=== PATIENT | male | born 1980 | race Caucasian/White ===

== ENCOUNTER 2017-08-21 16:49 | Inpatient (IN) | payer MEDICAID ==
[2017-08-21] MEDS: ONDANSETRON 4 MG INJ IV (19:06)
[2017-08-21] MEDS: morphine 4 MG/ML VIAL IV ×2 (19:06→20:27)
[2017-08-21] MEDS: SOD CHLORIDE 0.9% 1,000 ML IV ×2 (19:07→20:26)
[2017-08-21 19:51] LABS: ADD MAN DIFF? NO
[2017-08-21 19:57] LABS: WHITE BLOOD COUNT 20.6 10^3/ul (4.8-10.8)
[2017-08-21 19:57] LABS: BASOPHIL # 0.1 10^3/ul (0.0-0.1); BASOPHILS % 0.2 % (0.0-2.0); EOSINOPHILS % 0.1 % (0.0-7.0); HEMATOCRIT 48.4 % (42.0-52.0); HEMOGLOBIN 16.7 g/dl (14.0-18.0); LYMPHOCYTES # 2.1 10^3/ul (0.8-2.9); MEAN CORPUSCULAR HEMOGLOBIN 28.9 pg (29.0-33.0); MEAN CORPUSCULAR HGB CONC 34.5 g/dl (32.0-37.0); MEAN CORPUSCULAR VOLUME 83.9 fl (82.0-101.0); MEAN PLATELET VOLUME 11.2 fl (7.4-10.4); MONOCYTE # 1.3 10^3/ul (0.3-0.9); MONOCYTES % 6.1 % (0.0-11.0); NEUTROPHIL # 17.1 10^3/ul (1.6-7.5); NEUTROPHILS % 83.2 % (39.0-77.0); PLATELET COUNT 303 10^3/UL (140-415); RED BLOOD COUNT 5.77 10^6/ul (4.70-6.10); RED CELL DISTRIBUTION WIDTH 12.2 % (11.5-14.5)
[2017-08-21 20:06] LABS: ADD UMIC YES; UR AMORPHOUS CRYSTAL FEW /HPF (NONE SEEN); UR ASCORBIC ACID NEGATIVE (NEGATIVE); UR BILIRUBIN (Dip) NEGATIVE (NEGATIVE); UR BLOOD (Dip) NEGATIVE (NEGATIVE); UR CLARITY CLOUDY (CLEAR); UR COLOR YELLOW (YELLOW); UR GLUCOSE (Dip) NEGATIVE (NEGATIVE); UR KETONES (Dip) NEGATIVE (NEGATIVE); UR LEUKOCYTE ESTERASE (Dip) NEGATIVE Leu/ul (NEGATIVE); UR NITRITE (Dip) NEGATIVE (NEGATIVE); UR RBC 1 /HPF (0-5); UR SPECIFIC GRAVITY (Dip) 1.027 (1.003-1.030); UR TOTAL PROTEIN (Dip) 1+ mg/dl (NEGATIVE); UR UROBILINOGEN (Dip) NEGATIVE (NEGATIVE); UR WBC 5 /HPF (0-5)
[2017-08-21 20:09] LABS: INR 0.96; PARTIAL THROMBOPLASTIN TIME 26.6 Sec (25.0-35.0); PROTIME 12.9 Sec (11.9-14.9)
[2017-08-21 20:11] LABS: ALANINE AMINOTRANSFERASE 53 IU/L (13-69); ALBUMIN/GLOBULIN RATIO 1.51; ALKALINE PHOSPHATASE 107 IU/L (42-121); ANION GAP 16 (8-16); ASPARTATE AMINO TRANSFERASE 29 IU/L (15-46); BILIRUBIN,INDIRECT 0.4 mg/dl (0-1.1); BILIRUBIN,TOTAL 0.4 mg/dl (0.2-1.3); BLOOD UREA NITROGEN 13 mg/dl (7-20); CALCIUM 9.4 mg/dl (8.4-10.2); CARBON DIOXIDE 29 mmol/L (21-31); CHLORIDE 100 mmol/L (97-110); CREATININE 0.66 mg/dl (0.61-1.24); GLUCOSE 123 mg/dl (70-220); LIPASE 77 U/L (23-300); POTASSIUM 3.8 mmol/L (3.5-5.1); SODIUM 141 mmol/L (135-144); TOTAL PROTEIN 8.3 g/dl (6.1-8.1)
[2017-08-21 20:25] LABS: TROPONIN-I < 0.012 ng/ml (0.00-0.12)
[2017-08-21] MEDS: CEFTRIAXONE 1 GM/50 ML (PMX) 50 ML IVPB (20:27)
[2017-08-21] MEDS: metroNIDAZOLE 500 MG/NS (PMX) 100 ML IVPB (20:44)
[2017-08-22] MEDS ORDERED: ACETAMINOPHEN 325 MG TAB PO (02:30)
[2017-08-22] MEDS ORDERED: morphine 2 MG INJ IV (02:30)
[2017-08-22] MEDS ORDERED: MAGNESIUM HYDROXIDE 30ML CUP PO (02:30)
[2017-08-22] MEDS ORDERED: NITROGLYCERIN (SL) 0.4 MG TAB SL (02:30)
[2017-08-22] MEDS ORDERED: ALBUTEROL/IPRATROPIUM (NEB) 3 ML AMP HHN (02:30)
[2017-08-22] MEDS ORDERED: hydrALAzine 20 MG INJ IV (02:30)
[2017-08-22] MEDS ORDERED: LORAZEPAM 2 MG INJ IV (02:30)
[2017-08-22] MEDS ORDERED: DOCUSATE SODIUM 100 MG CAP PO ×2 (02:30→14:00)
[2017-08-22] MEDS ORDERED: ONDANSETRON 4 MG INJ IV (02:30)
[2017-08-22] MEDS ORDERED: HYDROCODONE/APAP (5/325) TAB PO ×2 (02:30→14:00)
[2017-08-22] MEDS ORDERED: NACL 0.9% 3 ML SYG IV (02:30)
[2017-08-22] MEDS ORDERED: NA PHOSPHATE/BIPHOS 133 ML ENEMA PR ×2 (02:30→14:00)
[2017-08-22] MEDS: SOD CHLORIDE 0.9% 1,000 ML IV ×2 (04:02→04:08)
[2017-08-22 06:24] LABS: PROTIME 13.3 Sec (11.9-14.9)
[2017-08-22 06:25] LABS: PARTIAL THROMBOPLASTIN TIME 29.5 Sec (25.0-35.0)
[2017-08-22] MEDS: PIPER-TAZO 3.375 GM IV (PMX) 100 ML IVPB ×2 (06:25→12:00)
[2017-08-22] MEDS: PANTOPRAZOLE (EC) 40 MG TAB PO (06:25)
[2017-08-22 06:51] LABS: FREE T4 (FREE THYROXINE) 1.08 ng/dl (0.79-2.35)
[2017-08-22] MEDS ORDERED: GLYCOPYRROLATE 0.4 MG INJ (07:00)
[2017-08-22] MEDS: HEPARIN 5,000 UNIT/0.5 ML VIAL SC (08:47)
[2017-08-22] MEDS ORDERED: PROPOFOL 20 ML (11:44)
[2017-08-22] MEDS ORDERED: LIDOCAINE 2% (SDV) 5 ML INJ (11:44)
[2017-08-22] MEDS ORDERED: MIDAZOLAM 1 MG/ML 2 ML INJ (11:45)
[2017-08-22] MEDS ORDERED: FENTAnyl 50 MCG/ML VIAL (11:45)
[2017-08-22] MEDS ORDERED: ROCURONIUM 50 MG INJ (11:46)
[2017-08-22] MEDS ORDERED: DEXAMETHASONE 4 MG/ML 1 ML INJ (12:25)
[2017-08-22] MEDS ORDERED: ROPIVACAINE 0.5 % 30 ML VIAL (12:32)
[2017-08-22] MEDS ORDERED: ONDANSETRON 4 MG INJ (12:43)
[2017-08-22] MEDS ORDERED: NEOSTIGMINE 3 MG/3 ML SYRINGE (12:43)
[2017-08-22] MEDS ORDERED: KETOROLAC 30 MG INJ (12:44)
[2017-08-22] MEDS: BUPIVACAINE 0.5%/EPI (SDV) 30 ML INJ (13:26)
[2017-08-22] MEDS ORDERED: HYDROmorphONE 0.5 MG/0.5 ML SYG IV (14:00)
[2017-08-22] MEDS ORDERED: BISACODYL 10 MG SUPP PR (14:00)
[2017-08-22] MEDS ORDERED: HYDROmorphONE 1 MG/ML SYG IV (14:00)
[2017-08-22 14:34] LABS: ETHANOL < 10.0 mg/dl
[2017-08-22] MEDS: FAMOTIDINE 20 MG TAB PO (20:35)
[2017-08-23 05:25] LABS: ADD MAN DIFF? NO
[2017-08-23 05:32] LABS: WHITE BLOOD COUNT 9.7 10^3/ul (4.8-10.8)
[2017-08-23 05:32] LABS: BASOPHILS % 0.3 % (0.0-2.0); EOSINOPHILS % 0.3 % (0.0-7.0); HEMATOCRIT 45.9 % (42.0-52.0); HEMOGLOBIN 15.7 g/dl (14.0-18.0); LYMPHOCYTES # 2.6 10^3/ul (0.8-2.9); LYMPHOCYTES % 26.4 % (15.0-51.0); MEAN CORPUSCULAR HEMOGLOBIN 28.7 pg (29.0-33.0); MEAN CORPUSCULAR HGB CONC 34.2 g/dl (32.0-37.0); MEAN CORPUSCULAR VOLUME 83.9 fl (82.0-101.0); MEAN PLATELET VOLUME 11.2 fl (7.4-10.4); MONOCYTE # 0.7 10^3/ul (0.3-0.9); MONOCYTES % 7.6 % (0.0-11.0); NEUTROPHIL # 6.3 10^3/ul (1.6-7.5); NEUTROPHILS % 65.1 % (39.0-77.0); PLATELET COUNT 283 10^3/UL (140-415); RED BLOOD COUNT 5.47 10^6/ul (4.70-6.10); RED CELL DISTRIBUTION WIDTH 12.2 % (11.5-14.5)
[2017-08-23 05:58] LABS: ANION GAP 14 (8-16); BLOOD UREA NITROGEN 11 mg/dl (7-20); CALCIUM 9.1 mg/dl (8.4-10.2); CARBON DIOXIDE 27 mmol/L (21-31); CHLORIDE 104 mmol/L (97-110); CREATININE 0.68 mg/dl (0.61-1.24); GLUCOSE 114 mg/dl (70-220); MAGNESIUM 2.2 mg/dl (1.7-2.5); PHOSPHORUS 4.6 mg/dl (2.5-4.9); POTASSIUM 3.7 mmol/L (3.5-5.1); SODIUM 141 mmol/L (135-144)
[2017-08-23 06:07] LABS: CHOL/HDL RATIO 3.5 RATIO; HDL CHOLESTEROL 58 mg/dl (28-63); LDL CHOLESTEROL,CALCULATED 127 mg/dl; TRIGLYCERIDES 88 mg/dl (0-149)
[2017-08-23 06:07] LABS: CHOLESTEROL 203 mg/dl (100-200)
[2017-08-23 07:10] LABS: HEMOGLOBIN A1C 5.9 % (0-5.9)
[2017-08-23] MEDS: ENOXAPARIN 40 MG/0.4 ML SYG SC (08:28)
[2017-08-23] MEDS: HYDROCODONE/APAP (5/325) TAB PO (08:29)
== END 2017-08-23 16:45 | disposition home or self-care (01) | DRG 343 ==
LOC: PP2 08-22 01:51 → FTE 16:49
PROC: 0DTJ4ZZ Resection of Appendix, Percutaneous Endoscopic Approach (ICD-10-PCS; principal; 2017-08-22 11:30)
DX: K35.80 Unspecified acute appendicitis (principal)
CPT/HCPCS: 36415; 74176; 80048; 80053; 80061; 80306; 81001; 83036; 83690; 83735; 84100; 84439; 84443; 84484; 85025; 85610; 85730; 88304; 93005; 96374; 96375; 96376; 99285-25

== ENCOUNTER 2017-09-07 13:22 | Outpatient (CLI) | payer MEDICAID | END 2017-09-07 17:00 | disposition home or self-care (01) | LOC: HPC 13:22 | DX: Z09 Encounter for follow-up examination after completed treatment for conditions other than malignant neoplasm (principal); K35.80 Unspecified acute appendicitis | CPT/HCPCS: Z7500 ==